=== PATIENT | female | born 1990 | race Caucasian/White ===

== ENCOUNTER 2017-12-10 16:58 | Emergency (ER) | payer MEDICAID ==
[~2017-12-10] VITALS: Ht 165.1 cm; Wt 67.1 kg
[~2017-12-10 16:58] MED LIST: CEPH500C3 PO; PENI500T PO; PREN0.01 PO
[2017-12-10 16:59] VITALS: BP 129/68; PULSE 83; RESP 18; TEMP 98.7; O2SAT 97
[2017-12-10] MEDS ORDERED: SODIUM CHLOR 0.9% 1000 ML INJ 1,000 ML IV ONE (18:31)
[2017-12-10 18:45] LABS: AUTOMATED NEUTROPHIL # 5.5 TH/MM3 (1.8-7.7); BASOPHIL % 0.5 % (0.0-2.0); EOSINOPHIL # 0.1 TH/MM3 (0-0.4); EOSINOPHIL % 0.7 % (0.0-4.0); HEMATOCRIT 37.6 % (35.0-46.0); HEMOGLOBIN 12.7 GM/DL (11.6-15.3); LYMPH % 24.2 % (9.0-44.0); MEAN CELL VOLUME 87.3 FL (80.0-100.0); MEAN CORPUSCULAR HEMOGLOBIN 29.6 PG (27.0-34.0); MEAN CORPUSCULAR HGB CONC 33.8 % (32.0-36.0); MEAN PLATELET VOLUME 7.6 FL (7.0-11.0); MONO % 6.1 % (0.0-8.0); MONOCYTE # 0.5 TH/MM3 (0-0.9); NEUT % 68.5 % (16.0-70.0); PLATELET COUNT 315 TH/MM3 (150-450); RED CELL DISTRIBUTION WIDTH 13.2 % (11.6-17.2); WHITE BLOOD COUNT 8.1 TH/MM3 (4.0-11.0)
[2017-12-10] MEDS ORDERED: SODIUM CHLORIDE 0.9% FLUSH 10 ML FLUSH IVF PRN (18:45)
[2017-12-10 18:53] LABS: BILIRUBIN, URINE NEG (NEG); BLOOD, URINE NEG (NEG); GLUCOSE,URINE NEG (NEG); KETONE, URINE NEG (NEG); NITRITE,URINE NEG (NEG); PH, URINE 6.5 (5.0-8.5); SQUAMOUS EPITHELIAL CELL URINE <1 /hpf (0-5); URINE COLOR COLORLESS (YELLW/STRAW); URINE LEUKOCYTE ESTERASE NEG (NEG)
[2017-12-10 19:00] LABS: ALBUMIN 3.8 GM/DL (3.4-5.0); AST (GOT) 11 U/L (15-37); BICARBONATE 27.4 MEQ/L (21.0-32.0); BLOOD UREA NITROGEN 21 MG/DL (7-18); CALCIUM 9.2 MG/DL (8.5-10.1); CHLORIDE 105 MEQ/L (98-107); GLOMERULAR FILTRATION RATE 87 ML/MIN (>89); GLUCOSE,RANDOM 81 MG/DL (74-106); SODIUM (NA) 139 MEQ/L (136-145)
[2017-12-10 19:01] LABS: ALT (GPT) 12 U/L (10-53)
[2017-12-10 19:04] LABS: ALKALINE PHOSPHATASE 88 U/L (45-117); TOTAL BILIRUBIN ADULT 0.3 MG/DL (0.2-1.0); TOTAL PROTEIN 7.5 GM/DL (6.4-8.2)
--- NOTE | 2017-12-10 19:21 | PD ---
HPI Chief Complaint: Complaint Time Seen by Provider: 18:31 Travel History International Travel<30 days: No Contact w/Intl Traveler<30days: No Traveled to known affect area: No History of Present Illness HPI an ex parte arrived from [facility] for medical clearance........states h/o of kidney infections, here c/o back pain for past week along with urinary frequency and urgency so she is concerned about having another urinary infection. denies alleviating/aggravating factors. denies assoc factors such as fever, n/v/d/abdominal pain/cp at this time. 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 Reported Meds & Prescriptions Reported Meds & Active Scripts Active Review of Systems General / Constitutional: No: Fever Eyes: No: Visual changes HENT: No: Headaches Cardiovascular: No: Chest Pain or Discomfort Respiratory: No: Shortness of Breath Gastrointestinal: No: Abdominal Pain Genitourinary: Positive: Urgency, Frequency Musculoskeletal: No: Pain Skin: No Rash Neurologic: No: Weakness Psychiatric: No: Depression Endocrine: No: Polydipsia Hematologic/Lymphatic: No: Easy Bruising Physical Exam Narrative GENERAL: SKIN: Warm and dry. HEAD: Atraumatic. Normocephalic. EYES: Pupils equal and round. No scleral icterus. No injection or drainage. ENT: No nasal bleeding or discharge. Mucous membranes pink and moist. NECK: Trachea midline. No JVD. CARDIOVASCULAR: Regular rate and rhythm. RESPIRATORY: No accessory muscle use. Clear to auscultation. Breath sounds equal bilaterally. GASTROINTESTINAL: Abdomen soft, non-tender, nondistended MUSCULOSKELETAL: Extremities without clubbing, cyanosis, or edema. No obvious deformities. NEUROLOGICAL: Awake and alert. No obvious cranial nerve deficits. Motor grossly within normal limits. Five out of 5 muscle strength in the arms and legs. Normal speech. PSYCHIATRIC: Agitated mood and affect; insight and judgment normal. Data Data Last Documented VS Vital Signs Date Time Temp Pulse Resp B/P (MAP) Pulse Ox O2 Delivery O2 Flow Rate FiO2 12/10/17 16:59 98.7 83 18 129/68 (88) 97 Room Air Orders Orders Complete Blood Count With Diff (12/10/17 17:18) Comprehensive Metabolic Panel (12/10/17 17:18) Urinalysis - C+S If Indicated (12/10/17 17:18) Ed Urine Pregnancytest Poc (12/10/17 17:18) Ct Abd/Pel W/O Iv Contrast (12/10/17 18:31) Ecg Monitoring (12/10/17 18:31) Iv Access Insert/Monitor (12/10/17 18:31) Sodium Chloride 0.9% Flush (Ns Flush) (12/10/17 18:45) Sodium Chlor 0.9% 1000 Ml Inj (Ns 1000 M (12/10/17 18:31) Lipase (12/10/17 18:31) Labs Laboratory Tests Test 12/10/17 18:02 12/10/17 18:20 Urine Color COLORLESS Urine Turbidity CLEAR Urine pH 6.5 Urine Specific Hermann 1.006 Urine Protein NEG mg/dL Urine Glucose (UA) NEG mg/dL Urine Ketones NEG mg/dL Urine Occult Blood NEG Urine Nitrite NEG Urine Bilirubin NEG Urine Urobilinogen LESS THAN 2.0 MG/DL Urine Leukocyte Esterase NEG Urine RBC LESS THAN 1 /hpf Urine WBC 1 /hpf Urine Squamous Epithelial Cells <1 /hpf Microscopic Urinalysis Comment CULT NOT INDICATED White Blood Count 8.1 TH/MM3 Red Blood Count 4.30 MIL/MM3 Hemoglobin 12.7 GM/DL Hematocrit 37.6 % Mean Corpuscular Volume 87.3 FL Mean Corpuscular Hemoglobin 29.6 PG Mean Corpuscular Hemoglobin Concent 33.8 % Red Cell Distribution Width 13.2 % Platelet Count 315 TH/MM3 Mean Platelet Volume 7.6 FL Neutrophils (%) (Auto) 68.5 % Lymphocytes (%) (Auto) 24.2 % Monocytes (%) (Auto) 6.1 % Eosinophils (%) (Auto) 0.7 % Basophils (%) (Auto) 0.5 % Neutrophils # (Auto) 5.5 TH/MM3 Lymphocytes # (Auto) 2.0 TH/MM3 Monocytes # (Auto) 0.5 TH/MM3 Eosinophils # (Auto) 0.1 TH/MM3 Basophils # (Auto) 0.0 TH/MM3 CBC Comment DIFF FINAL Differential Comment Blood Urea Nitrogen 21 MG/DL Creatinine 0.80 MG/DL Random Glucose 81 MG/DL Total Protein 7.5 GM/DL Albumin 3.8 GM/DL Calcium Level 9.2 MG/DL Alkaline Phosphatase 88 U/L Aspartate Amino Transf (AST/SGOT) 11 U/L Alanine Aminotransferase (ALT/SGPT) 12 U/L Total Bilirubin 0.3 MG/DL Sodium Level 139 MEQ/L Potassium Level 3.9 MEQ/L Chloride Level 105 MEQ/L Carbon Dioxide Level 27.4 MEQ/L Anion Gap 7 MEQ/L Estimat Glomerular Filtration Rate 87 ML/MIN Lipase 103 U/L [facility] Medical Decision Making Medical Screen Exam Complete: Yes Emergency Medical Condition: Yes Medical Record Reviewed: Yes Differential Diagnosis PYELO V UTI V KIDNEY STONE Narrative Course CT NEGATIVE FOR ACTIVE URETERAL STONES, NO PYELO. ua neg for uti.................cmp is neg for electrolyte abnl, nl lft's and nl lipase....no leukocytosis, no anemia....MEDICALLY CLEARED TO RETURN TO [facility] PER HER EX [facility] Diagnosis Primary Impression: MEDICALLY CLEARED Disposition: 70 TRANSFER TO OTHER FACILITY Condition: Stable Miguelangel George MD Dec 10, 2017 19:21
--- NOTE | 2017-12-10 21:20 | RADRPT ---
EXAM DATE/TIME: 12/10/2017 20:30 [place] COMPARISON: No previous studies available for comparison. INDICATIONS : Right flank pain. Dysuria. ORAL CONTRAST: No oral contrast ingested. RADIATION DOSE: 11.97 CTDIvol (mGy) MEDICAL HISTORY : None SURGICAL HISTORY : None. ENCOUNTER: Initial ACUITY: 2 days PAIN SCALE: 10/10 LOCATION: Right flank TECHNIQUE: Volumetric scanning of the abdomen and pelvis was performed. Using automated exposure control and ad justment of the mA and/or kV according to patient size, radiation dose was kept as low as reasonably achievable to obtain optimal diagnostic quality images. DICOM format image data is available electro nically for review and comparison. FINDINGS: LOWER LUNGS: The visualized lower lungs are clear. LIVER: Visualized portions are unremarkable. No significant calcified gallstones. SPLEEN: This was portions are unremarkable. PANCREAS: Within normal limits. KIDNEYS: Punctate 2 mm calcified calculus in the mid right kidney. Kidneys are otherwise symmetrical in size w ithout evidence for hydronephrosis or contour deforming abnormality. ADRENAL GLANDS: Within normal limits. VASCULAR: There is no aortic aneurysm. BOWEL/MESENTERY: The stomach, small bowel, and colon demonstrate no acute abnormality. Appendix is visualized and norm al in appearance. Moderate amount of stool throughout the colon. There is no free intraperitoneal air or fluid. ABDOMINAL WALL: Within normal limits. RETROPERITONEUM: There is no lymphadenopathy. BLADDER: No wall thickening or mass. REPRODUCTIVE: Within normal limits. INGUINAL: There is no lymphadenopathy or hernia. MUSCULOSKELETAL: Within normal limits for patient age. CONCLUSION: 1. Punctate 2 mm nonobstructing calyceal calculus in the mid right kidney. Otherwise, no obstructive uropathy. 2. Normal appendix. 3. Moderate stool throughout colon may reflect constipation. Rakesh March MD on December 10, 2017 at 21:15 Board Certified Radiologist. This report was verified electronically.
[2017-12-10 22:38] VITALS: BP 121/55; PULSE 70; RESP 18; O2SAT 100
== END 2017-12-10 23:13 | disposition short-term general hospital (02) ==
LOC: NEPD 16:58
DX: R39.15 Urgency of urination (principal); M54.9 Dorsalgia, unspecified; F17.200 Nicotine dependence, unspecified, uncomplicated
CPT/HCPCS: 74176; 80053; 81001; 83690; 84703; 85025; 96360; 99284; J7030